=== PATIENT | female | born 1940 | race Caucasian/White ===

== ENCOUNTER 2023-06-06 21:29 | Inpatient (IN) | payer MEDICARE, OTHER ==
[~2023-06-06] VITALS: Ht 160 cm; Wt 59.3 kg
[2023-06-06 22:03] LABS: BASOPHILS 0.9 % (0-2); EOSINOPHILS 6.3 % (0-6); HEMATOCRIT 38.7 % (35.0-50.0); HEMOGLOBIN 12.7 g/dL (12.0-18.0); LYMPHOCYTES 22.7 % (24-44); MCH 30.9 (27-36); MCHC 32.8 g/dl (30-36); MCV 94.3 fl (81-99); NEUTROPHILS 61.1 % (39-80); PLATELET COUNT 232 K/uL (140-440); RBC 4.11 M/ul (4.3-5.7); RDW 14.1 (10.5-15.0)
[2023-06-06 22:16] LABS: INR 1.01 (0.80-1.30); PROTIME 12.9 Sec (11.2-14.2)
[2023-06-06 22:17] LABS: ALBUMIN 3.4 g/dL (3.4-5.0); ALBUMIN/GLOBULIN RATIO 0.87 (1.1-2.4); ANION GAP 14.6 (7-21); BILIRUBIN, TOTAL 0.3 ng/dL (0.2-1.0); BUN/CREATININE RATIO 27.02 (6.0-28.6); CALCIUM 9.2 mg/dL (8.5-10.1); CREATININE, SERUM 0.74 mg/dL (0.55-1.02); POTASSIUM 3.6 mmol/L (3.5-5.1); PROTEIN, TOTAL 7.3 g/dL (6.4-8.2)
[2023-06-06 23:04] LABS: INFLUENZA B NAA NEGATIVE (NEGATIVE); RESPIRATORY SYNCYTIAL VIR NAA NEGATIVE (NEGATIVE)
[2023-06-07] VITALS (9 sets, daily range): BP systolic 103–149; BP diastolic 57–76
[2023-06-07] MEDS ORDERED: ASPIRIN81 MG PO (03:05)
[2023-06-07] MEDS ORDERED: VENTOLIN HFA18 GM (03:05)
[2023-06-07] MEDS ORDERED: LIPITOR40 MG PO (03:05)
[2023-06-07] MEDS ORDERED: BENADRYL25 MG PO (03:06)
[2023-06-07] MEDS ORDERED: CALCIUM-MAGNES1 EAC4 PO (03:06)
[2023-06-07] MEDS ORDERED: DICLOFENAC SOD100 MG PO (03:07)
[2023-06-07] MEDS ORDERED: CLOBETASOL 0.0560 GM TP (03:07)
[2023-06-07] MEDS ORDERED: GLUCOSAMINE-CH1 EA32 PO (03:08)
[2023-06-07] MEDS ORDERED: HAIR, SKIN & N1 EACH PO (03:09)
[2023-06-07] MEDS ORDERED: NIFEDIPINE ER90 MG PO (03:09)
[2023-06-07] MEDS ORDERED: TACROLIMUS30 G1 TP (03:10)
[2023-06-07] MEDS ORDERED: OXYGEN XX (03:10)
[2023-06-07] MEDS ORDERED: K-TAB ER20 MEQ PO (03:10)
[2023-06-07] MEDS ORDERED: ZYRTEC10 MG PO (03:11)
--- NOTE | 2023-06-07 03:25 | NUR ---
PATIENT ARRIVED TO THE FLOOR, AND REPORT WAS RECEIVED BY LINE PERSON. TRANSFERRED PATIENT FROM [facility] TO HOSPITAL BED W 4 PERSON ASSIST. PRN PAIN MEDICAITON GIVEN, SEE EMAR. PUREWICK IN PLACE. IV FLUIDS INFUSING PER ORDER. ADMISSION ASSEMESNT COMPLETED. PATIENT HAD ACTIVE BOWEL TONES. STRONG PEDAL PULSES PRESENT. HEART AND RESPIRATORY WNL. CMS INTACT. LEFT LEG SHORTENED AND TURN OUTWARD. PATIENTS DAUGHTER, АЛЕКСАНДР, IS AT BEDSIDE STAYING OVER NIGHT. NO FURHTER NEEDS AT THIS TIME. PATIENT ORIENTED TO ROOM. PATIENT EDCATED ON HOW TO USE CALL LIGHT.
--- NOTE | 2023-06-07 04:17 | NUR ---
ROUNDING ON PATIENT. PATIENT RESTING IN BED WITH EYES CLOSED. RESIRATINS EVEN AND UNLABORED. 02 95% ON 2L NC. CALL LIGHT IS WITHIN REACH.
--- NOTE | 2023-06-07 05:24 | NUR ---
ROUNDING ON PATIENT. VSS. NEW BAG IV FLUID INFUSING, WNL. PATIENT CONTINUES TO REPORT ABD PAIN. FRESH WATER PROVIDED. NO FURTHER NEEDS.
[2023-06-07] MEDS ORDERED: DOCUSATE SODIU100 M1 PO (06:29)
--- NOTE | 2023-06-07 06:47 | NUR ---
PATIENT VITAL SIGNS OBTAINED. PATIENT IN 5/10 PAIN IN THE LEFT LEG. PRN PAIN MEDICATION GIVEN, SEE MAR PATIENT UNABLE TO VOID. PATIENT HAD A BLADDER SCAN, 700 + mL OF URINE IN THE BLADDER. WALDEN CATHETER PLACED.
--- NOTE | 2023-06-07 06:58 | NUR ---
TELEPHONE ORDER RECEIVED FOR HOSPITALIST CONSULT VERIFIED WITH READBACK METHOD. DR. JACKSON IN CCU. MESSAGE LEFT WITH CCU RN REGARDING CONSULT REQUEST.
--- NOTE | 2023-06-07 07:35 | NUR ---
VERBAL BEDSIDE REPORT RECEIVED FROM TOO ROGEL AND TOO SHANE. PT IS AWAKE AND ALERT, IN BED, SUPINE, VISITORS AT BEDSIDE. DAUGHTER IN ROOM ASSIST PT WITH ORAL CARE.
--- NOTE | 2023-06-07 07:51 | NUR ---
PT/DAUGHTER UPDATED REGARDING SURGICAL TIME. DAUGHTER REMOVING PT WATCH, EARRINGS, NECKLACE, AND RINGS AND PLACING IN SPECIMEN CUP PROVIDED. DAUGHTER TO KEEP JEWELRY UNTIL PT RETURN FROM SURGERY. ORAL CARE SUPPLIES AND CHAPSTICK PROVIDED FOR PT.
--- NOTE | 2023-06-07 08:03 | NUR ---
DR. EDWARD INTO SPEAK WITH PT.
--- NOTE | 2023-06-07 08:20 | NUR ---
Update from Dr. Lai. Pt will have surgery today. At this time, family plan on taking pt home as their home is handicap accessable.
--- NOTE | 2023-06-07 08:34 | NUR ---
WALDEN CATHETER EMPTIED, CLEAR YELLOW URINE NOTED. CHLORHEXADINE BATH PROVIDED, NEW GOWN DONNED. EKG PERFORMED BY DI STAFF. DENTURES REMAIN IN PLACE, DENTURE CUP PROVIDED. JEWLERY REMOVED AND PLACED WITH DAUGHTER.
--- NOTE | 2023-06-07 10:58 | NUR ---
PT ARRIVES BACK TO MED-SURG S/P LEFT HIP REPAIR WITH DYNAMIC HIP SCREW. VERBAL BEDSIDE REPORT RECEIVED FROM TOO GLEASON.
--- NOTE | 2023-06-07 11:10 | NUR ---
PT ON 4L O2 VIA NC, SATS 94%, ON CONTINUOUS PULSE OXIMETER. TEDS AND KNEE HIGH SCDS IN PLACE. ICE OVER LEFT UPPER THIGH INCISION. DRESSING TO LEFT UPPER THIGH INCISION IS INTACT. SMALL AMOUNT OF RED STRIKE THROUGHT NOTED ON DRESSING. CMS INTACT TO BLE, PT REPORTS TINGLING IN BLE. DP PULSES STRONG BILATERALLY, VIOLIN TEACHER LESS THAN [address] DRAINING CLEAR YELLOW URINE. VSS. PT DENIES PAIN AT THIS TIME. "FEELS DIFFERENT, TINGLING." WARM BLANKET PROVIDED PER PT REQUEST. CALL LIGHT IN REACH VISITORS X2 AT BEDSIDE. NO REQUESTS AT THIS TIME.
--- NOTE | 2023-06-07 11:18 | NUR ---
06/07/23 1118 Jeannine Gomez 1007 PT ARRIVED IN PACU NON RESPONSIVE TO NOXIOUS STIMULI WITH OPA IN PLACE. 1010 BLOOD SUGAR 107. ICE TO L HIP. 1015 PT REACTIVE. OPA REMOVED. 1030 PT VISITING WITH STAFF. NO C/O'S. 1058 TO ROOM 112. BED PLUGGED IN AND REPORT GIVEN TO RN. FAMILY AT BEDSIDE.
--- NOTE | 2023-06-07 12:09 | NUR ---
VSS. PT DROWSY ON 4L O2 VIA NC SATS 95%, PT ON CONTINUOUS PULSE OXIMETER. DP PULSES STRONG BILATERALLY, ORTHOTIST PROSTHETIST LESS 3 SEC. CMS INTACT. PT REPORTS SOME TINGLING STILL IN THE BLE. DENIES PAIN AT THIS TIME. NO CHANGES TO DRAINAGE ON LEFT THIGH DRESSING, ICE REMAINS IN PLACE. COFFEE PROVIDED PER PT REQUEST.
--- NOTE | 2023-06-07 13:00 | NUR ---
PT RESTS WITH EYES CLOSED, RESP EVEN AND UNLABORED, ROUSES TO SOUND. ON 4LPM O2 VIA NC, CMS INTACT TO BLE. PT REPORTS BLE ARE "A LITTLE TINGLY." PT DENIES PAIN OR NAUSEA. TOLERATES SIPS OF COFFEE WELL. ANTONIO CHAPMAN PROVIDED PER PT REQUEST. NOTED A SMALL INCREASE IN SANGUINEOUS DRAINAGE ON THE LEFT THIGH DRESSING. ICE REMAINS IN PLACE. VSS. NO FURTHER REQUESTS AT THIS TIME.
--- NOTE | 2023-06-07 14:10 | NUR ---
VSS. PT SITS UP IN RECLINER, JUST FINISHED SESSION WITH PHYSICAL THERAPY. PT SATS 97% ON 4LMP O2, O2 TITRATED DOWN TO 2LPM. CMS TO BLE INTACT. NOTED MODERATED SANGUINESOUS STRIKE THROUGH ON LEFT THIGH DRESSING, ICE IN PLACE OVER INCISION. PT REPORTS INCISIONAL PAIN 3/10. DENIES NAUSEA, TOLERATES ANTONIO CRACKERS WELL. PT ASKS FOR MORE FOOD, SOUP ORDERED TO PT ROOM. VISITORS X4 IN PT ROOM.
--- NOTE | 2023-06-07 14:21 | NUR ---
NATALIE RECEIVED FOR LEFT INCISIONAL PAIN, SEE eMAR.
--- NOTE | 2023-06-07 16:50 | NUR ---
Spoke with Scarlett, her daughter Patricia, and her MIN Lj. Pt has been living in her motorhome and staying in [place]. She was getting ready to move to her daughter's in [place] for the winter when she fell. Pt has room with a walk in shower that was built for her. She will move from her motorhome into the daughter's house.Granddaughter and her family live next door. Family plans on driving pt to their home in her motorhome. Pt uses 02 chronic, and has her concentrator with her. We discussed needs for pt to get home and what she will need at home. House is one level and has walk in shower. Pt will need a walker. MIN would like pt to have wc, pt does not want this. Daughter requests Home Health. We looked up agencies on medicare compare and they would like [facility]. I will discuss the above with Dr. Lai in the morning and request and Rx for a walker and f2f for Home Health. They deny further needs. I will discuss with PT to check if they feel pt has other needs. Per pt she is toe touch wt bearing. She does not want a SNF on [place], but to go home with family. Hopefully we can make this happen.
--- NOTE | 2023-06-07 18:04 | NUR ---
PT SITS UP IN RECLINER, EATS DINNER. IS PROVIDED, REVIEWED HOW TO USE IS, PT VERBALIZES UNDERSTANDING, STATES SHE HAS USED ONE BEFORE. HEEL PROTECTORS IN ROOM ON BED FOR USE WHEN PT RETURNS TO BED.
--- NOTE | 2023-06-07 18:14 | NUR ---
PT S/P LEFT HIP ORIF WITH DYNAMIC HIP SCREW TODAY WITH . PT DENIES NAUSEA, TOLERATES PO INTAKE. PAIN CONTROLLED WITH NORCO PO. CMS INTACT TO BLE, DRAINAGE ON LEFT THIGH INCISION INCREASED FROM SMALL AMOUNT OF STRIKE THROUGH TO A MODERATE AMOUNT OF STRIKE THROUGH, DRESSING OTHERWISE INTACT. TEDS ON BLE, ICE OVER INCISION. CBG MANAGED WITH SLIDING SCALE INSULIN. PT UP WITH PHYSICAL THERAPY TODAY WHO REPORTS PT TO BE A HEAVY TO MODERATE 1-2 PERSON ASSIST WITH TRANSFERS, TTWB ONLY. IS AND HEEL PROTECTORS IN ROOM. PT EPRESSES FEAR OF EXPERIENCING PAIN LIKE THAT SHE FELT WHEN SHE FRACTURED HER HIP. WALDEN CATHETER REMAINS IN PLACE, DRAINS CLEAR YELLOW URINE. IV TO SL.
[2023-06-07 18:29] LABS: ANION GAP 14.3 (7-21); BUN/CREATININE RATIO 16.47 (6.0-28.6); CALCIUM 8.1 mg/dL (8.5-10.1); CREATININE, SERUM 0.85 mg/dL (0.55-1.02); POTASSIUM 3.3 mmol/L (3.5-5.1)
--- NOTE | 2023-06-07 18:36 | NUR ---
PATIENT SITTING UP IN CHAIR WORKING ON DINNER. VITALS AND I&O'S CHARTED. CALL LIGHT IN REACH. NO FURTHER NEEDS AT THIS TIME.
--- NOTE | 2023-06-07 19:25 | NUR ---
REPORT RECIEVED FROM TC GAGE. PATIENT TRANSFERED FROM THE CHAIR TO BED. 2PA TOE TOUCH WEIGHT BEARING ON LEFT LEG. CALL LIGHT WITH IN REACH. NO FURTHER NEEDS AT THIS TIME.
--- NOTE | 2023-06-07 20:30 | NUR ---
ASSESSMENT AND VITAL SIGNS DONE. DRESSING ON LEFT HIP INTACT, DRAINAGE NOTED. THIS RN OUTLINED THE DRAINAGE UNDER THE DRESSING AND WILL CONTINUE TO MONITOR. SCHEDULED MEDICATIONS GIVEN PER ORDER SEE MAR. PATIENT TRANSFERED FROM THE CHAIR TO THE BED. 2PA STAND PIVOT, NON WEIGHT BEARING ON LEFT LEG. SCDS, KARINA HOSE AND HEAL PROTECTORS ON. CALL LIGHT WITHIN REACH. NO FURTHER NEEDS AT THIS TIME.
--- NOTE | 2023-06-07 22:50 | NUR ---
PATIENT IN BED RESTING. PRN PAIN MEDICATIONS GIVEN. IV ABX GIVEN PER ORDER SEE OCT. WATER REFRESHED. CALL LIGHT WITH IN REACH. NO FURTHER NEEDS AT THIS TIME.
[2023-06-08 01:40] VITALS: BP 115/64
--- NOTE | 2023-06-08 01:47 | NUR ---
VITAL SIGNS DONE. PATIENT LAYING IN THE BED RESTING WITH EYES CLOSED. CALL LIGHT WITH IN REACH. NO FURTHER NEEDS AT THIS TIME.
--- NOTE | 2023-06-08 02:47 | NUR ---
PATIENT'S URINE OUTPUT WAS LOW. BLADDER SCANNED AND NO URINE WAS IN THE BLADDER. PATIENT ENCOURAGED TO DRINK. CALL LIGHT WITH IN REACH. NO FURTHER NEEDS AT THIS TIME.
--- NOTE | 2023-06-08 03:53 | NUR ---
PATIENT RESTING IN THE BED. RESP OBSERVED. CALL LIGHT WITH IN REACH. NO NEEDS AT THIS TIME.
[2023-06-08 05:48] LABS: BASOPHILS 0.2 % (0-2); EOSINOPHILS 0.1 % (0-6); HEMATOCRIT 24.3 % (35.0-50.0); HEMOGLOBIN 8.2 g/dL (12.0-18.0); LYMPHOCYTES 8.5 % (24-44); MCH 31.3 (27-36); MCHC 33.7 g/dl (30-36); MCV 92.9 fl (81-99); NEUTROPHILS 83.2 % (39-80); PLATELET COUNT 183 K/uL (140-440); RBC 2.62 M/ul (4.3-5.7); RDW 13.9 (10.5-15.0)
[2023-06-08 06:03] LABS: ALBUMIN 2.5 g/dL (3.4-5.0); ALBUMIN/GLOBULIN RATIO 0.86 (1.1-2.4); ANION GAP 7.6 (7-21); BILIRUBIN, TOTAL 0.3 ng/dL (0.2-1.0); BUN/CREATININE RATIO 22.61 (6.0-28.6); CREATININE, SERUM 0.84 mg/dL (0.55-1.02); POTASSIUM 3.6 mmol/L (3.5-5.1); PROTEIN, TOTAL 5.4 g/dL (6.4-8.2)
[2023-06-08 06:12] VITALS: BP 116/54
--- NOTE | 2023-06-08 06:15 | NUR ---
VITAL SIGNS AND ASSESSMENT DONE. NEW ICE PACK PLACED ON LEFT HIP. ICE WATER REFRESHED. CALL LIGHT WITH IN REACH. DRESSING INTACT.
--- NOTE | 2023-06-08 07:00 | OR ---
[facility] [address] [place], [place] [address] Signed DATE OF OPERATION: 06/07/2023 SURGEON: May Lai MD PREOPERATIVE DIAGNOSIS: Left intertrochanteric hip fracture, displaced. POSTOPERATIVE DIAGNOSIS: Left intertrochanteric hip fracture, displaced. PROCEDURE PERFORMED: Open reduction and internal fixation of left hip. LAW OFFICE MANAGER: None. ANESTHESIA: Spinal. BLOOD LOSS: 165 mL. IMPLANTS: Four hole Synthes DHS 85 mm lag screw and four distal screws. BRIEF HISTORY: Scarlett is an 83-year-old female with pain in her hip [place]. She was admitted to my service after radiographs showed a displaced intertrochanteric hip fracture. She was seen by the hospitalist and cleared for surgery this morning. Risks and benefits of operative treatment were discussed with her and she elected to proceed. DESCRIPTION OF PROCEDURE: Once consent was obtained, she was taken to the operating room. After adequate anesthesia, she was placed in traction post and the left leg was placed in traction. Traction was applied and Leadbetter maneuver was performed. The fracture was reduced with some difficulty. The nonoperative leg was placed in a traction boot and was adducted and extended. The C-arm was brought in and reasonably good reduction was obtained. The hip was then prepped and draped in a standard sterile fashion. The hip was approached through a 5 inch incision laterally. This was carried through skin and Electronically Signed By: MAY LAI MD 06/08/23 0700 PATIENT NAME: SCARLETT COWART OPERATIVE REPORT DATE OF : 40 REPORT #: [id number] PHYSICIAN: MAY LAI MD PCP: LEONARDO TOLEDO MD REPORT IS CONFIDENTIAL AND NOT TO BE RELEASED WITHOUT AUTHORIZATION [facility] [address] [place], [place] [address] Signed subcutaneous tissue and down to the IT band. This was divided longitudinally and through the vastus lateralis in a blunt fashion down to the lateral femur. Once this was accomplished, the fracture was reduced with a large clamp and the guide pin for the DHS set was then placed from the lateral femur across the femoral neck into a low center-center position on the femoral head. Once this was accomplished, the guide pin was over-reamed using the triple reamer after measuring to an 85 lag screw. The screw was then placed over the guide pin and advanced until it was well-seated in the femoral head with good bone purchase. The plate was then placed over the screw and advanced until it was flushed with the lateral femur. Once this was accomplished, the distal screw hole was drilled and appropriate length screw was placed. Final three holes were drilled and the final three screws were placed. Radiograph showed good reduction, good placement of the screws and alignment of the plate. The wound was then copiously irrigated with normal saline. The fascia was closed using #2 Stratafix, the subcutaneous tissue with 0 Stratafix and the skin with keyshawn. Wound was dressed with Acticoat-7 dressing only and she was awakened and taken to the recovery room in satisfactory condition. All sponge, needle, and instrument counts were correct. It should be noted at the end of the procedure that her left lower extremity was about 2 cm shorter than the right. Again, there is near anatomic reduction, so I believe this comes from her knee arthritis and knee flexion contracture. May Lai MD BA/MODL /[id number] Copies: ~ Electronically Signed By: MAY LAI MD 06/08/23 0700 PATIENT NAME: SCARLETT COWART OPERATIVE REPORT DATE OF : 40 REPORT #: [id number] PHYSICIAN: MAY LAI MD PCP: LEONARDO TOLEDO MD REPORT IS CONFIDENTIAL AND NOT TO BE RELEASED WITHOUT AUTHORIZATION
--- NOTE | 2023-06-08 07:00 | NUR ---
DR. EDWARD UPDATED ON LOW URINE OUTPUT AND DRAINAGE FROM INCISION. NO NEW ORDERS AT THIS TIME.
--- NOTE | 2023-06-08 07:22 | NUR ---
VERBAL REPORT RECEIVED FROM TOO RUIZ AND TOO WAGNER. PT RESTS IN BED WITH EYES CLOSES, RESP EVEN AND UNLABORED. O2 SATS 94% ON 2LPM VIA NC.
--- NOTE | 2023-06-08 08:19 | NUR ---
Pt sitting upright in bed with eyes closed & resting, awoke to verbal arousal. Blood glucose 131, primary nurse notified. Encouraged pt to drink fluids, patient agreeable. new icepack applied to left hip, dressing CLI. Bed railings up, call light and fluid within reach. patient stated she was comfortable and had no questions or concerns.
--- NOTE | 2023-06-08 09:02 | NUR ---
UPON ASSESSMENT OF THE IV IN THE RAC LEAKING NOTED, IV D/C. PT ON 2LPM O2 VIA NC SATS 93%. IS AT BEDSIDE. HEEL PROTECTORS IN PLACE TO BLE. CMS TO BLE INTACT. ICE IN PLACE OVER LEFT THIGH INCISION. NOTED ABD TAPED IN PLACE IS C/D/I, NO DRAINAGE THROUGH REINFORCED DRESSING.
--- NOTE | 2023-06-08 09:10 | NUR ---
Spoke with [facility]. They do not accept Medicare. They suggested [facility]. I called and spoke with Judy. She requests I send the chart and gave me the fax [phone]. I will send the chart when PT works with pt today.
--- NOTE | 2023-06-08 10:40 | NUR ---
Update given to Scarlett and daughter. Damon will be delivered today.
[2023-06-08 10:47] VITALS: BP 116/54
--- NOTE | 2023-06-08 11:00 | NUR ---
IV ESTABLISHED, 20G IN LFA, PT TOLERATED WELL. LR INFUSION STARTED ORDERED.
--- NOTE | 2023-06-08 11:05 | NUR ---
PT LAYING UPRIGHT IN BED, DAUGHTER AT BEDSIDE. PATIENT ASSESSMENT COMPLETED AND DOCUMENTED. PATIENT STATES SHES COMFORTABLE WITH NO QUESTIONS OR CONCERNS. NEW ICE PACK PLACED ON LEFT HIP AND PILLOWS ADJUSTED. VITALS AND I&O DONE AND DOCUMENTED.
--- NOTE | 2023-06-08 12:37 | EKG ---
[facility] [address] [facility] [place], [place] [address] Signed Sinus bradycardia Low voltage QRS ST \T\ T wave abnormality, consider lateral ischemia Abnormal ECG No previous ECGs available Confirmed by ARIANE JACKSON MD ([id number]) on 06/08/2023 12:37:14 PM Electronically Signed By: ARIANE JACKSON 06/08/23 1237 PATIENT NAME: HEIDI COWART Electrocardiogram DATE OF : 40 PHYSICIAN: ARIANE JACKSON REPORT #: [id number] REPORT IS CONFIDENTIAL AND NOT TO BE RELEASED WITHOUT AUTHORIZATION
--- NOTE | 2023-06-08 13:41 | NUR ---
PHYSICAL THERPAY IN ROOM WORKING WITH PT. PT UP IN RECLINER.
--- NOTE | 2023-06-08 13:59 | NUR ---
DAUGHTER IN ROOM. PT AND DAUGHTER BOTH IN GOOD SPIRITS. CONSENTED TO PRAYER. PRAYED FOR ONGOING HEALING AND ABIDING PEACE.
[2023-06-08 14:32] VITALS: BP 120/48
--- NOTE | 2023-06-08 14:40 | NUR ---
PT SITTING IN CHAIR WITH DAUGHTER AT SIDE. VITALS AND I&Os DONE. LINENS CHANGED AND ICE WATER REPLACED. PT STATED SHE WAS COMFORTABLE IN CHAIR, NO FURTHER QUESTIONS OR CONCERN. CALL LIGHT WITHIN REACH.
--- NOTE | 2023-06-08 15:00 | NUR ---
Face sheet, referral, f2f, H&P, Progress notes, PT/OT notes faxed to [facility] in [place], [place].
--- NOTE | 2023-06-08 15:54 | NUR ---
ONE TAB NORCO 7.5/325MG PO ADMIN FOR 5/10 LEFT HIP PAIN.
--- NOTE | 2023-06-08 16:01 | NUR ---
FRESH ICE PACK APPLIED TO LEFT THIGH INCISION, LEFT THIGH SWELLING NOTED. DRESSING OVER LEFT THIGH INCISION C/D/I. KARINA HOSE IN PLACE BLE, PT UP IN RECLINER. 2L O2 ON VIA NC. IV INFUSING LR, IV C/D/I, NO REDNESS, SWELLING OR LEAKING NOTED. PT RECEIVES NORCO FOR INCISIONAL PAIN. DAUGHTER IN ROOM VISITING.
--- NOTE | 2023-06-08 16:08 | NUR ---
WALDEN CATHETER IN PLACE DRAINS CLEAR CONCENTRATED YELLOW URINE. PO INTAKE ENCOURAGED.
--- NOTE | 2023-06-08 17:03 | NUR ---
PT SATS 85% ON 2 1/2 LMP VIA NC. PT IS AWAKE AND ALERT. IS ENCOURAGED, O2 SATS REMAIN BELOW 90%. O2 INCREASED TO 4LPM VIA NC, O2 SATS UP TO 89-91%. LUNGS CLEAR.
[2023-06-08 18:56] VITALS: BP 135/78
--- NOTE | 2023-06-08 19:45 | NUR ---
REPORT RECEIVED FROM DAY SHIFT RN. PT ASSISTED FROM RECLINER CHAIR TO BED. TOLERATED WELL. IV FLUIDS INFUSING. KARINA HOSE AND SCD'S IN PLACE. ICE PACKS APPLIED TO LEFT HIP FOR COMFORT. DRESSING CLEAN, DRY, AND INTACT. WALDEN DRAINING CLEAR YELLOW URINE. CALL LIGHT WITHIN REACH. SAFETY PRECAUTIONS IN PLACE. O2 IN PLACE. WILL CONTINUE TO MONITOR.
[2023-06-08 20:12] VITALS: BP 130/55
--- NOTE | 2023-06-08 20:23 | NUR ---
THIS PLATEMAKER ASSISTED RN TO GET PATIENT FROM BED SIDE CHAIR BACK INTO BED. THIS WAS SUCCESSFUL. PATIENT BACK IN BED COMFORTABLY. VITALS AND I/OS CHARTED. CALL LIGHT LEFT WITHIN REACH. NO OTHER IMMEDIATE NEEDS AT THIS TIME.
--- NOTE | 2023-06-09 01:40 | NUR ---
PT RESTING COMFORTABLY IN BED. BREATHING EVEN AND UNLABORED. SCD'S AND KARINA HOSE IN PLACE. HEEL BOOTS IN PLACE. ICE PACKS FILLED AND REPLACED. DRESSING CLEAN, DRY, AND INTACT. NO NEW DRAINAGE NOTICED. NO SIGNS OF ACUTE DISTRESS. [address] CALL LIGHT WITHIN REACH. WILL CONTINUE TO MONITOR. SAFETY PRECAUTIONS IN PLACE.
--- NOTE | 2023-06-09 05:45 | NUR ---
UPON ASSESSMENT, PT STATES SHE IS SHORT OF BREATH. VS TAKEN AND PT SATTING IN MID TO UPPER 80'S. OTHER VS WNL. FINE CRACKLES ASSESSED IN LOWER LOBES. RESPIRATORY CALLED AND ALSO ASSESSED PT. DR. NGUYEN CALLED AND NOTIFIED OF SOB AND VS. ORDERS FOR Q4 NEBULIZERS, CPT, AND TO D/C OF FLUIDS. WILL CONTINUE TO MONITOR.
[2023-06-09 05:54] VITALS: BP 126/56
--- NOTE | 2023-06-09 07:10 | NUR ---
REPORT RECEIVED FROM TOO RUIZ. PT LAYING IN BED WITH EYES CLOSED. RR EVEN AND UNLABORED. DR. JACKSON ENTERS ROOM. PT RESPONDS WHEN ADDRESSED. PT REQUESTING WARM BLANKET, WATER AND COFFEE. SN UCHE PROVIDED PT WITH WARM BLANKET, WATER AND COFFEE. PT DENIES ANY OTHER NEEDS AT THIS TIME. CALL LIGHT IN REACH.
--- NOTE | 2023-06-09 07:41 | NUR ---
REPORT GIVEN TO DAY SHIFT RN. PT LAYING IN BED RESTING COMFORTABLY. BREATHING EVEN AND UNLABORED. O2 IN PLACE. KARINA HOSE, SCD'S AND HEEL PROTECTORS IN PLACE. DRESSING CLEAN DRY AND INTACT. NO SIGNS OF ACUTE DISTRESS. CALL LIGHT WITHIN REACH. SAFETY PRECAUTIONS IN PLACE.
--- NOTE | 2023-06-09 09:15 | NUR ---
Spoke with Scarlett. She states she will be here until Monday. I texted Dr. Lai and he confirmed. Let pt know I spoke with [facility] and let them know pt will be discharging to home on Monday.
--- NOTE | 2023-06-09 09:18 | NUR ---
IN WITH SN UCHE TO ADMINISTER MEDICATIONS, SEE MAR. PT TAKES PO MEDICATIONS WITH NO ISSUES. ASSESSMENT COMPLETE. LUNG SOUNDS CLEAR IN RUL AND MICHAEL. CRACKLES IN AND RHONCHI IN RLL AND LLL. BOWEL TONES ACTIVE. PT REPORTS "A LITTLE TENDERNESS" WITH ABD PALPATION. LLE DRESSING C/D/I. EDEMA NOTED TO LEFT THIGH AND KNEE. PT REPORTS PAIN 4/10. PT REPORTS PAIN IS TOLERABLE AT THIS TIME. RT IN ROOM TO ADMINISTER BREATHING TX. PT DENIES ANY OTHER NEEDS AT THIS TIME. CALL LIGHT IN REACH.
[2023-06-09 09:50] VITALS: BP 122/60
--- NOTE | 2023-06-09 11:27 | NUR ---
IN TO ROUND ON PT. PT UP WITH PHYSICAL THERAPY. PT DENIES ANY NEEDS FROM THIS RN AT THIS TIME.
--- NOTE | 2023-06-09 12:00 | NUR ---
STUDENT NURSE GAVE PT COMPLETE BEDBATH, NEW GOWN AND SOCKS. TRANSFERRED FROM BED TO CHAIR WITH PHYSICAL THERAPY. LINENS CHANGED. PT SITTING IN CHAIR WITH DAUGHTER AT SIDE.
--- NOTE | 2023-06-09 12:29 | NUR ---
IN TO ROUND ON PT. PT UP IN RECLINER. PT REQUESTING SALT FOR LUNCH. SALT PROVIDED. PT DENIES ANY OTHER NEEDS AT THIS TIME. CALL LIGHT IN REACH. FAMILY IN ROOM. RT IN ROOM.
[2023-06-09 13:03] VITALS: BP 127/65
--- NOTE | 2023-06-09 13:30 | NUR ---
IN WITH PANTERA GAGNON. PT REQUESTING TO GO BACK TO BED. 2PA WITH FWW FROM RECLINER TO BED. PT REPORTING PAIN 5/10. PRN PAIN MEDICATION ADMINISTERED, SEE MAR. PT TAKES PO MEDICAITON WITH NO ISSUES. WATER PROVIDED. ICE PACKS PROVIDED. PT DENEIS ANY OTHER NEEDS AT THIS TIME. CALL LIGHT IN REACH. FAMILY IN ROOM.
--- NOTE | 2023-06-09 15:04 | NUR ---
NURSE HELP ME PUT PATIENT BACK TO BED AROUND ONE FIFTEEN. PATIENT USED HER WALKER.
--- NOTE | 2023-06-09 15:23 | NUR ---
IN TO ROUND ON PT. PT RESTING IN BED WITH EYES CLOSED. RR EVEN AND UNLABORED. PT AWAKENS AND ADDRESSES THIS RN. ASSESSMENT COMPLETE. PT REPORTING PAIN 3/10 IN LEFT HIP. ICE PACK IN PLACE. LUNG SOUNDS CLEAR IN RUL. EXPIRATORY WHEEZE IN MICHAEL, RLL AND LLL. CRACKLES IN RLL AND LLL. DRESSING TO LEFT HIP C/D/I. PEDAL PULSES PALPABLE. EDEMA NOTED TO LEFT THIGH AND LEFT KNEE. PT DENIES ANY OTHER NEEDS AT THIS TIME. CALL LIGHT IN REACH. PT ENCOUGAGED TO USE TRUMPET.
--- NOTE | 2023-06-09 17:58 | NUR ---
IN TO ROUND ON PT. PT LAYING IN BED AND REPSONDS WHEN ADDRESSED. PT DENIES ANY NEEDS AT THIS TIME. CALL LIGHT IN REACH.
[2023-06-09 18:13] VITALS: BP 123/65
--- NOTE | 2023-06-09 19:25 | NUR ---
BEDSIDE REPORT RECEIVED FROM ROD RN, PT AWAKE AND ALERT, DENIES NEED FOR PAIN MED AT THIS TIME, TALKATIVE AND PLEASANT, SIDE RAILS UP X 4, PT WATCHING TV, NURSE CALL LIGHT IN REACH.
--- NOTE | 2023-06-09 20:10 | NUR ---
RT IN FOR RESP TREATMENT, PT REQUESTING PAIN MED FOR LEFT HIP DISCOMFORT WHEN SHE IS DONE WITH NEB TREATMENT.
[2023-06-09 20:32] VITALS: BP 132/63
--- NOTE | 2023-06-09 20:35 | NUR ---
RN TO BEDSIDE, PT ALERT AND ORIENTENED, VS COMPLATED AND STABLE, ACCUCHECK 183, DISCUSSED NEED TO GIVE SS INSULIN, PT STATES SHE NEVER TAKES INSULIN AT HOME, DISCUSSED SOMETIMES WITH ADDED STRESS (FX, SURGERY, ETC) BLOOD SUGARS MAY BECOME ELEVATED, PT STATES SHE DID HAVE PART OF CORN BREAD MUFFIN EARILIER, PT DECLINES INSULIN AT THIS TIME UNTIL RN CAN TELL HER ALL HER BLOOD SUGARS TODAY, PLAN TO DISCUSS THIS WITH PATIENT. PT RESTING, WATCHING TV.
--- NOTE | 2023-06-09 22:50 | NUR ---
RN TO ROOM, PT AWAKE AND ALERT, STATES PAIN PILL WAS EFFECTIVE FOR HIP DISCOMFORT, ASSESSMENT COMPLETED, PT REPOSITIONED UP IN BED, CATH CARE DONE AND WALDEN DRAINING YELLOW URINE, ACCUCHECKS FROM TODAY DISCUSSED WITH PT, PT AGREES TO HAVING ACCUCHECK REDONE, CURRENTLY 154, PT AGREES TO SS INSULIN, 1 UNIT SQ GIVEN PER ORDER, FRESH ICE BAGS TO LEFT HIP AND TO LEFT KNEE, DRESSING DRY AND INTACT, FRESH WATER GIVEN AND BED LOW POSITION. SCDS, HEEL PROTECTORS AND KARINA HOSE IN PLACE.
--- NOTE | 2023-06-09 23:30 | NUR ---
PT WITHOUT FURTHER REQUESTS, ATTEMPTING TO REST, OXYGEN REMAINS ON AT 2.5L/NC, HOB ELEVATED APPROX 25-30%.
--- NOTE | 2023-06-10 00:30 | NUR ---
PT ASLEEP, RESP REG, WITHOUT DISTRESS.
--- NOTE | 2023-06-10 02:25 | NUR ---
PT REMAINS ASLEEP, RESP EVEN AND REG, RESP RATE 20.
--- NOTE | 2023-06-10 03:57 | NUR ---
PT APPEARS TO BE SLEEPING, RESP EVEN AND REG.
[2023-06-10 05:40] VITALS: BP 128/44
--- NOTE | 2023-06-10 05:40 | NUR ---
PT AWAKEN FOR VS, NOTED OXYGEN OFF, REPLACED AT 2.5L/NC, SATS 87% AND GRADUALLY GO UP TO 90-91% IN A FEW MINUTES, PT STATES SHE MAY WANT TO GET UP TO SIT ON TOILET AND SEE IF SHE CAN HAVE A BM, ENCOURAGED TO TAKE A PAIN PILL PRIOR TO GETTING UP, PT AGREES, MEDICATED WITH NORCO PER ORDER, FRESH ICE TO LEFT HIP, DRESSING REMAINS DRY, COFFEE GIVEN PER REQUEST. PT ATTEMPTING TO REST, BREATH SOUNDS CLEAR AND DIM IN THE BASES. PT RESTING
--- NOTE | 2023-06-10 07:15 | NUR ---
REPORT RECEIVED FROM JOHN Mendoza RN. PT SITTING UP IN BED. PT RESPONDS WHEN ADDRESSED. PT DENIES ANY NEEDS AT THIS TIME. CALL LIGHT IN REACH.
--- NOTE | 2023-06-10 08:06 | NUR ---
IN TO ADMINISTER MEDICAITON, SEE MAR. PT TAKES PO MEDICAITON WITH NO ISSUES. ASSESSMENT COMPLETE. LUNG SOUNDS CLEAR. BOWEL TONES ACTIVE. PT REPORTING PAIN 3/10 TO LEFT THIGH. DRESSING TO LEFT THIGH C/D/I. EDEMA NOTED TO LEFT THIGH AND KNEE. PEDAL PULSES PALPABLE. ICE PACKS IN PLACE TO LEFT KNEE AND LEFT THIGH. PT DENIES ANY OTHER NEEDS AT THIS TIME. CALL LIGHT IN REACH. RT IN ROOM.
--- NOTE | 2023-06-10 09:07 | NUR ---
IN TO ROUND ON PT. PT UP IN RECLINER. TOO RASHEED IN ASSISTING PT WITH TRAY. PT DENIES ANY NEEDS FROM THIS RN AT THIS TIME.
[2023-06-10 09:44] VITALS: BP 132/70
--- NOTE | 2023-06-10 10:12 | NUR ---
IN TO ROUND ON PT. PT SITTING UP IN RECLINER VISITING WITH FAMILY. PT REPORTING PAIN 12/05. PRN PAIN MEDICATION ADMINISTERED, SEE MAR. PT TAKES PO MEDICATION WITH NO ISSUES. [facility] DC's AT 1020 PER ORDERS. FAMILY LEAVES ROOM FOR PT PRIVACY. PT TOLERATES WELL. PT DENIES ANY OTHER NEEDS AT THIS TIME. CALL LIGHT IN REACH. FAMILY BACK IN ROOM.
--- NOTE | 2023-06-10 11:27 | NUR ---
IN TO ROUND ON PT. PT UP IN RECLINER WITH EYES CLOSED, RR EVEN AND UNLABORED. CALL LIGHT IN REACH. NO NEEDS IDENTIFIED.
--- NOTE | 2023-06-10 12:08 | NUR ---
IN TO ROUND ON PT. PT UP IN RECLINER WITH BLE ELEVATED ON RECLINER. LLE ELEVATED WITH PILLOW. PT RESTING WITH EYES CLOSED, RR EVEN AND UNLABORED. NO NEEDS IDENTIFIED AT THIS TIME. CALL LIGHT IN REACH.
--- NOTE | 2023-06-10 13:15 | NUR ---
IN TO ROUND ON PT. PT UP IN RECLINER. FAMILY IN ROOM. OFFERED TOILETING. PT DENIES AT THIS TIME. EDUCATED PT THAT WE NEED TO ATTEMPT TO VOID SOON, OTHERWISE THIS RN WILL NEED TO BLADDER SCAN PT AND GO FROM THERE. PT VERBALIZES UNDERSTANDING AND STATES "I'LL WORK ON IT" WHILE HOLDING UP WATER CUP. PT DENIES ANY OTHER NEEDS AT THIS TIME. CALL LIGHT IN REACH.
[2023-06-10 14:05] VITALS: BP 125/54
--- NOTE | 2023-06-10 14:06 | NUR ---
IN WITH PANTERA GAGNON TO GET PT UP TO BSC. PT SITTING UP IN RECLINER. 2PA FROM RECLINER TO BSC WITH FWW. TOE TOUCH WEIGHT BEARING ON LEFT LOWER EXTREMITY. PT REQUESTING SOME TIME. CALL LIGHT IN REACH. VITALS COMPLETE. PT DENIES ANY OTHER NEEDS AT THIS TIME. CALL LIGHT IN REACH. PT VERBALIZES UNDERSTANDING TO CALL WHEN READY TO GO TO BED.
--- NOTE | 2023-06-10 14:40 | NUR ---
PT CALLS FOR ASSIST OFF COMMODE. PT VOIDS 100ML OF URINE. EDILBERTO CARE PROVIDED. PT ASSISTED TO BED WITH 2 PERSON ASSIST, PT TOLERATES THIS WELL. ICE WATER AND ICE PACKS TO LEFT THIGH INCISION AND LEFT KNEE PER PT REQUEST. CALL LIGHT AND BELONGINGS IN REACH, NO FURTHER REQUESTS AT THIS TIME.
--- NOTE | 2023-06-10 15:14 | NUR ---
IN TO ROUND ON PT. DR. JACKSON IN ROOM. PT REPORTING PAIN 12/05. PRN PAIN MEDICATION ADMINISTERED, SEE MAR. PT TAKES PO MEDICAITONS WITH NO ISSUES. ASSESSMENT COMPLETE. LUNG SOUNDS CLEAR. LEFT THIGH DRESSING C/D/I. EDEMA TO LEFT THIGH AND KNEE. LEFT THIGH NOT WARM TO TOUCH. PEDAL PULSES PALPABLE. PT IN BED WITH ICE PACK TO LEFT HIP. LEFT LEG ELEVATED ON PILLOW. PT DENIES ANY OTHER NEEDS AT THIS TIME. CALL LIGHT IN REACH.
--- NOTE | 2023-06-10 16:50 | NUR ---
IN TO ROUND ON PT. PANTERA BRENNER IN ROOM. PT RESTING IN BED WITH EYES CLOSED, RR EVEN AND UNLABORED. NO NEEDS IDENTIFIED AT THIS TIME. CALL LIGHT IN REACH. PANTERA GAGNON IN ROOM.
--- NOTE | 2023-06-10 17:14 | NUR ---
IN TO ADMINISTER MEDICATION, SEE MAR. PT REQUESTING TO BE REPOSITIONED IN BED. TOO MONTEZ IN TO ASSIST WITH BOOSTING PT. PT BOOSTED IN BED. TRAY PROVIDED FOR PTs DINNER. PT DENIES ANY OTHER NEEDS AT THIS TIME. CALL LIGHT IN REACH. MADE PLAN TO COME BACK FOR TOILETING.
[2023-06-10 18:04] VITALS: BP 123/60
--- NOTE | 2023-06-10 18:04 | NUR ---
IN TO OBTAIN VITALS. VITALS COMPLETE. TOO RASHEED IN TO ASSIST WITH GETTING PT FROM BED TO BSC WITH FWW. PT ON BSC. PANTERA GAGNON IN TO REMOVE DINNER TRAY. I&Os COMPLETE. PT REQUESTING PRIVACY. CALL LIGHT IN REACH OF PT. PT INSTRUCTED TO CALL WHEN READY TO GET OFF BSC AND BACK INTO BED. PT VERBALIZES UNDERSTANDING. PT DENIES ANY OTHER NEEDS AT THIS TIME.
--- NOTE | 2023-06-10 19:32 | NUR ---
BEDSIDE REPORT RECEIVED PER ROD RN, PT ALERT AND ORIENTENED, PT VISITING WITH FAMILY, FRESH WATER GIVEN.
[2023-06-10 20:15] VITALS: BP 138/57
--- NOTE | 2023-06-10 20:24 | NUR ---
INTO DO PATIENTS VITALS. RT IN WITH PATIENT AT THIS TIME. FAMILY AT BEDSIDE. PATIENT ON 4L NC AT THIS TIME. PATIENT VERY TALKATIVE. CALL LIGHT WITHIN REACH. DENIES ANY OTHER CARES AT THIS TIME.
--- NOTE | 2023-06-10 20:49 | NUR ---
PT AWAKE AND ALERT, FAMILY AT BEDSIDE, PT MEDICATED FOR PAIN CONTROL, PT REQUESTING 2 NORCO TABLETS, GIVEN PER ORDER, SS INSULIN 3U HUMOLOG GIVEN SQ PER ORDER, PT ALERT, TALKATIVE TO FAMILY, ASSESSMENT COMPLETED, PT REMAINS ON 4L/NC, PLAN TO GET UP TO VOID. ICE IN PLACE TO LEFT HIP AND LEFT KNEE. SIDE RAILS UP X2, BED LOW POSITION AND CALL LIGHT IN REACH.
--- NOTE | 2023-06-10 23:10 | NUR ---
PT ASSISTED UP TO BSC WITH 2PA WITH FFW, SUPPORT TO LEFT LEG GIVEN PER RN, PT WANTING TO DO MUCH SHE CAN TO KEEP UP HER STRENGTH, PT SAT UP ON COMMODE AND WANTS A FEW MINUTES TO SIT, FRESH BEVERAGES GIVEN.
--- NOTE | 2023-06-10 23:55 | NUR ---
PT BACK TO BED WITH 1PA, SLOW BUT STEADY, ATTEMPTING TO DO MUCH SHE CAN ON HER OWN, RN ASSISTING WITH LEFT LEG, PT VOIDED 150ML YELLOW URINE, WHEN BACK IN BED, FRESH ICE TO LEFT HIP AND LEFT KNEE, SIDE RAILS UP X 4 PER PT REQUEST, DRINKING PROTEIN DRINK, DENIES OTHER NEEDS AT THIS TIME.
--- NOTE | 2023-06-11 00:45 | NUR ---
PT APPEARS TO SLEEP, RESP EVEN AND REG, OXYGEN REMAINS IN PLACE, PT WITHOUT SIGNS OF DISTRESS.
--- NOTE | 2023-06-11 02:40 | NUR ---
PT ASLEEP, RESP EVEN AND REG, OXYGEN IN PLACE.
--- NOTE | 2023-06-11 03:05 | NUR ---
PT ASLEEP, RESP EVEN AND REG, OXYGEN IN PLACE.
--- NOTE | 2023-06-11 04:25 | NUR ---
PT RESTING, REPOSITIONING SELF, RESP REG WITHOUT DISTRESS.
[2023-06-11 05:50] VITALS: BP 135/87
--- NOTE | 2023-06-11 05:55 | NUR ---
PT AWAKEN, ALERT, VS STABLE, AFEBRILE, REQUESTING PAIN MED, MEDICATED WITH 2 NORCO PER ORDER, PT ASSISTED UP TO BSC, 1PA WITH FFW, AND LEFT TOE TOUCH ONLY, PT VOIDED AND PASSING GAS. RN AT BEDSIDE.
--- NOTE | 2023-06-11 06:25 | NUR ---
PT ASSISTED BACK TO BED, TRANSFERS SLOW BUT STEADY, ATTEMPTING TO DO MUCH SHE CAN BY HERSELF, SCD AND HEEL PROTECTORS REPLACED ON PT, BREATH SOUNDS CLEAR UPPER LOBES AND DIM IN BASES, SATS 95% ON 4L/NC, LEFT HIP DRESSING INTACT WITHOUT NOTED DRAINAGE, FRESH ICE TO LEFT HIP AND LEFT KNEE, PT RESTING QUIETLY WITHOUT FURTHER REQUESTS.
--- NOTE | 2023-06-11 07:10 | NUR ---
RECEIVED PT REPORT FROM TOO LOPEZ. PT IS SUPINE IN BED, LIGHTS OFF, SLEEPING. BREATHING IS REGULAR AND NON-LABORED, EQUAL CHEST RISE AND FALL. CALL LIGHT IS IN REACH.
[2023-06-11 08:50] VITALS: BP 138/66
--- NOTE | 2023-06-11 08:50 | NUR ---
IN FOR MED ADMINISTRATION PER EMAR. PT IS UP IN CHAIR, STATES SHE ALREADY HAD PT THIS MORNING. PT RATES HER PAIN 3.5 OUT OF 10 AND STATES THAT SHE IS COMFORTABLE AT THIS NUMBER. PT HAS ICE PACKS TO HER LEFT KNEE AND LEFT HIP AT THIS TIME. BREAKFAST TRAY IN ROOM, PT SET UP AT HER PREFERENCES. DENIES FURTHER NEEDS AT THIS TIME. PT O2 SATURATIONS ARE AT 93% ON 4L HUMIDIFIED O2.
--- NOTE | 2023-06-11 09:10 | NUR ---
DR. EDWARD IN TO SEE PT. PT UP IN CHAIR
[2023-06-11 11:28] VITALS: BP 133/68
--- NOTE | 2023-06-11 13:00 | NUR ---
IN FOR PAIN MED ADMINISTRATION. PT RATES PAIN 4 OUT OF 10. SHE IS SITTING UP IN THE CHAIR, LEGS ELEVATED, EATING LUNCH, FAMILY AT BEDSIDE. CALL LIGHT IN REACH. DENIES NEEDS AT THIS TIME.
[2023-06-11 13:05] VITALS: BP 115/77
--- NOTE | 2023-06-11 14:19 | NUR ---
PT CALL LIGHT ON. PT REQUESTS ASSISTANCE UP TO COMODE AND BACK TO BED. 1 PERSON ASSIST WITH FWW UP TO COMODE. PT VOIDS WITHOUT ISSUE. EDILBERTO CARE PER PT. 1 PERSON ASSIST WITH FWW BACK TO BED. FRESH ICE PACKS PROVIDED. PT TALKING WITH FAMILY ON PHONE. NO ADDITIONAL REQUESTS OR COMPLAINTS. CALL LIGHT WITHIN REACH.
--- NOTE | 2023-06-11 14:40 | NUR ---
PT SUPINE IN BED, EYES CLOSED, BREATHING REGULAR AND NON-LABORED, EQUAL CHEST RISE AND FALL. CALL LIGHT IN REACH.
--- NOTE | 2023-06-11 15:40 | NUR ---
IN WITH PT FOR POSITIONING. PT IS SUPINE IN BED AND STATES THAT SHE FEELS LIKE HER BOTTOM IS IN A HOLE. ASSISTED PT TO READJUST TO A POSITION OF COMFORT, PLACING PILLOWS UNDER HER LEFT HIP AND SHOULDER WELL A PILLOW UNDER HER RIGHT SHOULDER AND ARM. KARINA HOSE ON, SCD'S ON, HEEL PROTECTORS ON, VISITOR AT BEDSIDE. CALL LIGHT IN REACH. PERSONAL BELONGINGS IN REACH. DENIES FURTHER NEEDS AT THIS TIME.
[2023-06-11 18:00] VITALS: BP 137/71
--- NOTE | 2023-06-11 18:00 | NUR ---
IN WITH PT FOR VS AND I/O. PT IS SITTING UP IN BED, FAMILY IN ROOM. HER FAMILY BROUGHT HER DINNER FROM [employer] THAT SHE SEEMS TO LIKE MORE THAN THE DINNER SHE RECEIVED FROM THE HOSPITAL. PT DENIES ANY NEEDS AT THIS TIME. CALL LIGHT IN REACH.
--- NOTE | 2023-06-11 18:37 | NUR ---
Pt was up in the chair for the first part of day shift. After lunch, the pt used the BSC and requested to be back in bed, where she has been ever since. Pt has not eaten much of her meals while here, but her family brought her food from [employer]. She has not needed corrective insulin on day shift. Pt has had ice packs to her left hip and knee throughout the day, has not been using her IS, and was given pain meds x1 today but has not requested more and has not rated her pain at a level where she states she would want more. Pt seems to become more "loopy" sounding while on pain medication, but is still oriented x4. She has had family and friends visiting her throughout the entire shift and has not slept much. Pt has been using her PT training to raise and lower her surgical leg, and uses the walker appropriately. Pt has not had a BM this shift.
--- NOTE | 2023-06-11 19:16 | NUR ---
SHIFT REPORT RECEIVED FROM MELANIE GAGE.
--- NOTE | 2023-06-11 19:33 | NUR ---
PT REPORT GIVEN TO TOO LOPEZ.
--- NOTE | 2023-06-11 19:45 | NUR ---
PT AWAKE AND ALERT, ANXIOUS TO GET UP TO BSC, STATES SHE NEEDS TO VOID, ASSISTED UP WITH 1PA AND FFW, TOE TOUCH TO LEFT FOOT, TRANSFER DIFFICULT DUE TO DISCOMFORT, PT STATES SHE WANTS TO GO NOW AND THEN GET PAIN MED AFTER RETURNING TO BED, PT VOIDED 475ML RAVI URINE. RN AT BEDSIDE, PT TALKATIVE ABOUT FAMILY MEMBERS VISITING AND EVENTS OF TODAY.
--- NOTE | 2023-06-11 20:44 | NUR ---
PT BACK TO BED, PT MEDICATED WITH 1 NORCO TABLET FOR PAIN IN LEFT HIP, VS AND ASSESSMENT COMPLETED. RT MEDICATIONS GIVEN, ACCUCHECK 185, 3 UNITS SS INSULIN GIVEN PER ORDER, SCDS, KARINA HOSE AND HEEL PROTECTORS IN PLACE, FRESH ICE TO LEFT HIP AND LEFT KNEE, SIDE RAILS UP X 4, BED LOW POSITION AND CALL LIGHT IN REACH. PT ABLE TO BURP BUT NO PASSING OF GAS, RT MIRALAX AND SENNA GIVEN. PT WATCHING TV.
[2023-06-11 20:50] VITALS: BP 138/57
--- NOTE | 2023-06-11 22:30 | NUR ---
PT WITH HOB ELEVATED, EATING A BANANA, ENCOURAGED PT TO CALL FOR ASSISTANCE AT ANY TIME, CALL LIGHT INTACT.
--- NOTE | 2023-06-12 00:10 | NUR ---
RN CALLED TO ROOM TO ASSIST PT UP TO BSC, TRANSFER UP TO BSC, TRANSFER WITH IPA WITH FWW, TRANSFER WENT A LITTLE SMOOTHER THAN LAST TRANSFER, PT VOIDED, PT CONCERNED SHE HASN'T HAD A BM AND STATES SHE PROBALBY WON'T GO HOME UNTIL SHE HAS A BM, DISCUSSED WITH PT THAT SHE CAN DISCUSS THIS WITH MD TOMORROW. ORAL CARE GIVEN, DENTURES CLEANSED PER PT REQUEST.
--- NOTE | 2023-06-12 01:55 | NUR ---
PT APPEARS TO SLEEP, RESP EVEN AND REG, OXYGEN IN PLACE,.
--- NOTE | 2023-06-12 04:05 | NUR ---
PT CONTINUES TO SLEEP, RESP EVEN AND REG, WITHOUT DISTRESS.
[2023-06-12 05:12] VITALS: BP 109/75
--- NOTE | 2023-06-12 05:16 | NUR ---
PT ASSISTED UP TO BSC PER ERASTO PROGRESS CLERK, PT STATES TRANFER WENT BETTER THAN LAST NIGHT, PT ATTEMPTING TO HAVE BM, VS DONE AND STABLE, PT DESIRES TO HAVE A FEW MINUTES ALONE ON BSC, WARM PRUNE JUICE GIVEN PER PT REQUEST.
--- NOTE | 2023-06-12 05:20 | NUR ---
PT MEDICATED WITH 1 NORCO TAB FOR LEFT HIP PAIN, BREATH SOUNDS WITH FAINT EXP WHEEZING, SL INTACT, LEFT HIP DRESSING REINFORCED WITH TAPE. PT CONCERNED WITH NOT HAVING A BM.
--- NOTE | 2023-06-12 06:45 | NUR ---
PT ASLEEP, RESP EVEN AND REG, WITHOUT DISTRESS.
--- NOTE | 2023-06-12 07:12 | NUR ---
PT REPORT RECEIVED FROM TOO BUTLER. PT IS RESTING IN BED, SLEEPING. BREATHING REGULAR AND NON-LABORED.
--- NOTE | 2023-06-12 08:31 | NUR ---
IN WITH PT FOR SHIFT ASSESSMENT AND MED ADMINISTRATION. PT IS A&O X4, SUPINE IN BED WITH HOB ELEVATED FOR COMFORT. PT IS VERY TALKATIVE THIS MORNING AND STATES THAT SHE "WILL NOT BE GOING HOME UNTIL SHE HAS A BOWEL MOVEMENT". DISCUSSED PT'S REGULAR BM HX WITH PT AND ADVISED HER THAT SHE HAS ACTIVE BOWEL TONES IN ALL 4 QUADRANTS. SHE HAS BEEN PASSING GAS YESTERDAY BUT NOT TODAY SO FAR. PT IS ON THE PHONE CURRENTLY WITH HER FAMILY MEMBER. SHE STATES THAT THEY ARE ALL STAYING AT [facility] AND HER RV IS PARKED THERE AT THE RV PARK. THEY PLAN ON LEAVING FOR [place] THE MORNING SHE IS RELEASED OR THE NEXT MORNING IF SHE IS RELEASED IN THE AFTERNOON. PT IS VERY CONCERNED ABOUT HER BOWELS AND STATES SHE HAS GONE 35 DAYS BEFORE, IN THE PAST, WITHOUT HAVING A BM, AND THAT WAS "VERY SCARY". PT IS CURRENTLY ON 2.5LPM O2 VIA NC AND HER SATS ARE AT 96%.
--- NOTE | 2023-06-12 10:15 | NUR ---
Spoke with pt and her daughter. Pt stating she cannot leave as she has not had a BM in the last 6 days. She has had an obstruction in the past. She has been taking stool softners and prune juice with out a BM. Let her know I will speak with the carbon electrodes supervisor. Spoke with Eli Heller. I will text Dr. Lai. Updated to no bm and they would like to give Magcitrate or MOM. Pts RN aware. He replied and ordered. Progress note showed pt can dc when she has had a bm.
[2023-06-12 10:33] VITALS: BP 156/60
--- NOTE | 2023-06-12 11:32 | NUR ---
IN WITH PT FOR MED ADMINISTRATION PER EMAR. PT IN WITH PT WELL. PT'S DAUGHTER IN ROOM. PT IS STATING THAT SHE WILL "NOT GO HOME TODAY" BECAUSE SHE DOES NOT WANT TO DRIVE HER MOTOR HOME AT NIGHT. PT IS TRYING TO DRINK MAG CITRATE AT THIS TIME, PER EMAR. CALL LIGHT IN REACH.
--- NOTE | 2023-06-12 12:45 | NUR ---
PT IS UP IN CHAIR, 3 VISITORS IN ROOM. LUNCH TRAY IN ROOM. PT STATES THE KITCHEN IS BRINGING HER A SANDWICH INSTEAD OF THE FOOD THEY BROUGHT FOR LUNCH BECAUSE SHE DOESN'T LIKE WHAT IS FOR LUNCH. PT COUGHED AND GRIMACED AND STATED THAT HURT REALLY BAD IN HER HIP. PT WAS MEDICATED WITH ONE TAB 7.5MG NORCO AT THIS TIME. ICE WATER REFRESHED. CALL LIGHT IN REACH.
[2023-06-12 14:04] VITALS: BP 115/55
--- NOTE | 2023-06-12 14:19 | NUR ---
NURSING STAFF IN ROOM. DID NOT INTERRUPT. PRAYED FOR HEALING AND ABIDING PEACE.
--- NOTE | 2023-06-12 14:52 | NUR ---
Called [facility] and updated, pt did not dc today. Spoke with Judy, she states they will have a nurse available to admit this week. Let her know, I am hoping pt will dc by tomorrow.
--- NOTE | 2023-06-12 17:07 | NUR ---
2PA PT FROM CHAIR TO C IN BATHROOM. PT INITIALLY REFUSED TO USE THE RESISTANCE BAND THAT PT SHOWED HER HOW TO USE TO HELP HERSELF MOVE HER LEFT LEG, WHEN TRANSFERRING TO THE COMMODE, AND REQUESTED ONE OF US USE OUR FOOT TO ASSIST HER WITH HER LEFT FOOT. ON THE WAY TO THE BED FROM THE COMMODE, THE PT WAS ENCOURAGED TO USE THE RESISTANCE BAND, WHICH SHE DID BUT ONLY WITH ASSISTANCE (THIS RN HELD TENSION ON THE BAND AND THE PT MOVED HER LEFT LEG ON HER OWN). PT SAT AT THE EDGE OF THE BED FOR DINNER. FAMILY MEMBERS IN ROOM. NO OTHER NEEDS AT THIS TIME.
--- NOTE | 2023-06-12 18:27 | NUR ---
PT HAS BEEN UP IN THE CHAIR FOR MOST OF THIS SHIFT, WORKED WITH PHYSICAL THERAPY, AND HAS HAD VISITORS FOR MOST OF THE SHIFT. PT HAS HAD FOOD BROUGHT IN TO HER AND REQUIRED 1 UNIT OF INSULIN AT LUNCH, ONLY. PT HAS BEEN UP TO VOID IN THE BATHROOM TO [facility] [place] 1 PERSON SBA USING FWW. HER DAUGHTER HAS BEEN INCREASINGLY HELPFUL AND SHOWS INTEREST IN WORKING WITH DELIVERY PERSON TOMORROW WHEN THEY COME TO WORK WITH THE PT SO SHE CAN LEARN HOW TO HELP HER AT HOME. PT REQUIRED 1 TAB 7.5MG NORCO THIS AFTERNOON AFTER RECEIVING 1 TAB THIS MORNING AT ABOUT 0600 HOURS, AND HAS DONE WELL. ICE PACKS HAVE BEEN OFF AND ON HER SURGICAL SITE THROUGHOUT THE SHIFT WELL. REINFORCED DRESSING IS CDI.
--- NOTE | 2023-06-12 18:39 | NUR ---
PT PULLS CALL LIGHT IN BATHROOM. PT HAS 1 LARGE LOOSE BM. PT HELPED BACK TO BED. CALL LIGHT GIVEN
--- NOTE | 2023-06-12 18:45 | NUR ---
ADVISED BY TOO BUTLER THAT PT HAD A LARGE LIQUID BM THIS EVENING.
[2023-06-12 18:48] VITALS: BP 124/43
--- NOTE | 2023-06-12 19:20 | NUR ---
BEDSIDE REPORT RECEIVED FROM MELANIE GAGE, PT ALERT AND VISITING WITH FAMILY MEMBERS, REPORTS SHE HAD A BM TODAY WHICH SHE IS VERY HAPPY FOR. PT PLANNING TO BE [place] TOMORROW. PT WITHOUT REQUESTS AT THIS TIME.
--- NOTE | 2023-06-12 20:20 | NUR ---
PT AWAKE AND ALERT, FAMILY VISITING, VS DONE, PT REQUESTING PAIN MED, MEDICATED PER ORDER WITH NORCO 1 TABLET FOR PAIN 12/05, ACCUCHECK 164, 1 U SS INSULING GIVEN PER ORDER, ICE GIVEN TO LEFT HIP AND LEFT KNEE, PT DECLINES MIRALAX AND SENNA FOR TONIGHT DUE TO LARGE BM EARILIER TODAY, OXYGEN IN PLACE AT 2.5L/NC.
[2023-06-12 20:22] VITALS: BP 125/57
--- NOTE | 2023-06-12 22:20 | NUR ---
PT RESTING IN BED, LEGS REPOSITIONED, PT WANTS SIT UP AND EAT SANDWICH WHEN NURSE HAS TIME TO COME TO ROOM, PT STATES SHE WILL ATTEMPT TO VOID LATER AFTER SITTING UP A WHILE. PT TALKATIVE.
--- NOTE | 2023-06-13 00:41 | NUR ---
PATIENT UTILIZED THE CALL LIGHT. PATIENT WAS UP IN THE CHAIR FOR MORE THAN 2 HOURS PER PATIENT'S REQUEST. THIS TIME PATIENT DECIDED TO USE THE COMMODE AND THEN GO TO BED. 1 PA USING WALKER. PATIENT IS SLOW PIVOTING BUT TOLERATING WELL. SCD'S AND HEEL PROTECTORS ON. CALL LIGHT WITHIN REACH.
--- NOTE | 2023-06-13 00:45 | NUR ---
PT RESTING IN BED, STATES SHE WILL CALL IF SHE NEEDS ANOTHER PAIN PILL, FRESH ICE TO LEFT HIP AND LEFT KNEE, ASSESSMENT COMPLETED. OXYGEN REMAINS ON AT 2.5L/NC, PT RESTING IN BED, LOW POSITION, CALL LIGHT IN REACH, SIDE RAILS UP X4 PER PT REQUEST.
--- NOTE | 2023-06-13 02:20 | NUR ---
PT APPEARS TO SLEEP, EYES CLOSED AND RESP EVEN AND REG.
[2023-06-13 03:50] VITALS: BP 136/55
--- NOTE | 2023-06-13 03:50 | NUR ---
RN CALLED TO ROOM, ASSISTED UP TO BSC, VS DONE AND STABLE, PT MEDICATED WITH 1 NORCO FOR PAIN 4/10, BREATH SOUNDS FAINT EXP WHEEZES THOUGHOUT, LEFT HIP DRESSING INTACT, WITHOUT DRAINAGE, PT VOIDED 500ML AND HAD SMALL SOFT BROWN BM, PT ASSISTED BACK TO BED, KARINA HOSE, SCDS AND HEEL PROTECTORS REMAIN IN PLACE, ICE TO LEFT HIP AND LEFT KNEE. CALL LIGHT IN REACH.
--- NOTE | 2023-06-13 04:30 | NUR ---
PT APPEARS TO SLEEP, RESP EVEN AND REG, WITHOUT DISTRESS.
--- NOTE | 2023-06-13 06:05 | NUR ---
PT CONTINUES TO SLEEP, RESP EVEN AND REG, LEFT UNDISTURBED.
--- NOTE | 2023-06-13 07:34 | NUR ---
Report received from Mala GAGE. Patient resting in bed with eyes closed, even and unlabored respirations noted. No needs identified at this time. Call light in reach.
[2023-06-13] MEDS ORDERED: XARELTO10 MG PO (08:12)
[2023-06-13] MEDS ORDERED: GABAPENTIN100 MG PO (08:13)
[2023-06-13] MEDS ORDERED: HYDROCODON-ACE1 EA11 PO (08:13)
--- NOTE | 2023-06-13 08:21 | NUR ---
PATIENT UP TO BSC AND THEN TO CHAIR, SBA FWW. PATIENT MOVED VERY WELL ON HER OWN WITH NO ASSISTANCE ON MOVING THE LEFT LEG. LINENS CHANGED. CALL LIGHT IN REACH. NO FURTHER NEEDS AT THIS TIME.
--- NOTE | 2023-06-13 09:10 | NUR ---
Notified by RT, pts portable concentrator is a scam and does not provice 1L of 02. She will not be able to transport to home with this. Pt has a [employer] concentrator. In and spoke with pt as she had stated she also had her home concentrator with her. Pt states it is in the motorhome. It does not work when traveling, only when stationary and plugged in. I called [facility] to check if we can send two of their tanks to [place] with this pt. Per Juan in RT, pt will require two tanks to get home. Called and spoke with Lupe at [facility]. She checked and pt is on [employer] service. She does not have orders for tanks only a concentrator. She will need an 02 qualifier and new orders for medicare to cover her tanks. I texted Dr. Lai and he will sign orders. Verbal order for 02 qualifier and tanks when needed.
--- NOTE | 2023-06-13 09:15 | NUR ---
Scheduled medications administered with exception of miralax and senna which patient refuses at this time. Patient vitals taken, stable. Pt up to chair, states no further needs at this time.
--- NOTE | 2023-06-13 09:44 | NUR ---
FAMILY IN ROOM. ALL APPEARED TO BE IN GOOD SPIRITS. CONFIDENT THAT ALL IS SET FOR PT TO GO HOME WITH THEM. PT REQUESTED PRAYER. PRAYED FOR ONGOING HEALING AND GAVE THANKS FOR FAMILY.
--- NOTE | 2023-06-13 10:00 | NUR ---
Received 02 qualifier and nursing attendant took, qualifer, RX, and DC summary to office for signatures and note to be added stating need for 0xygen. All returned and faxed to [facility] at 11:38. Called and let [facility] know orders have been faxed. She will let me know when they have received auth.
--- NOTE | 2023-06-13 10:45 | NUR ---
Assisted patient to ambulate to BR. FWW with TTWB on L side. Patient has difficulty getting back to chair after voiding, chair brought closer to patient. Patient highly motivated however. Requires 2L of O2 with exertion, RT in room to perform O2 qualifier. Patient dressed in own clothes, IV removed WNL.
--- NOTE | 2023-06-13 12:30 | NUR ---
Family brought in outside meal for patient. Patient awaiting authorization for home 02.
--- NOTE | 2023-06-13 13:57 | NUR ---
SPOKE TO TOMMY GODINEZ REGARDING HIP DRESSING, SHE GIVES VERBAL ORDER TO CHANGE DRESSING PRIOR TO PATIENT DISCHARGE.
--- NOTE | 2023-06-13 14:00 | NUR ---
Called [facility] and asked if they have received auth. She states they have not,but does not feel it will be an issue. She ok for pt leave with their tanks. Called and spoke with jacqueline Denton, and let her know pt may dc.
[2023-06-13 14:11] VITALS: BP 133/56
--- NOTE | 2023-06-13 14:25 | NUR ---
SURGICAL DRESSING CHANGED. ELA INTACT, BRUISING AROUND INCISION, HOWEVER WELL APPROXIMATED AND NO REDNESS OR DRAINAGE NOTED. PATIENT DISCHARGE INSTRUCTIONS PROVIDED AND PERSONAL BELONGINGS RETURNED. IV REMOVED WNL. PATIENT ON ROOM AIR AT REST. 3 O2 TANKS SENT WITH PATIENT WITH TUBING. PRESCRIPTIONS SENT TO PHARMACY AND FAMILY RETRIEVED THEM. PT STABLE WITH NO FURTHER NEEDS. ASSISTED TO TRANSFER TO AND TO PERSONAL VEHICLE.
== END 2023-06-13 14:30 | disposition home or self-care (01) | DRG 482 ==
LOC: ED 21:29 → MS 06-07 00:33
PROVIDERS: Family Medicine; ADMIT Specialist; ATTEND Specialist
PROC: 0QS704Z Reposition Left Upper Femur with Internal Fixation Device, Open Approach (ICD-10-PCS; principal; 2023-06-07 09:00)
DX: S72.142A Displaced intertrochanteric fracture of left femur, initial encounter for closed fracture (principal); J44.9 Chronic obstructive pulmonary disease, unspecified; E11.9 Type 2 diabetes mellitus without complications; E87.6 Hypokalemia; E78.5 Hyperlipidemia, unspecified; Z20.822 Contact with and (suspected) exposure to COVID-19; D50.0 Iron deficiency anemia secondary to blood loss (chronic); I10 Essential (primary) hypertension; K59.00 Constipation, unspecified; W01.0XXA Fall on same level from slipping, tripping and stumbling without subsequent striking against object, initial encounter; Z98.890 Other specified postprocedural states; Z88.0 Allergy status to penicillin; Z88.8 Allergy status to other drugs, medicaments and biological substances; Z91.038 Other insect allergy status; Z79.899 Other long term (current) drug therapy; Z79.51 Long term (current) use of inhaled steroids; Z79.82 Long term (current) use of aspirin; Z87.01 Personal history of pneumonia (recurrent)
CPT/HCPCS: 01230; 36415; 51702; 73502; 73552; 80048; 80053; 85025; 85610; 87502; 93005; 93010; 94640; 94667; 94668; 94760; 94761; 94762; 97110; 97116; 97161; 97530; 99285-25; A9270; C1713; J0690; J0735; J1100; J1160; J1720; J1815; J1885; J2001; J2250; J2270; J2405; J2704; J2765; J3010; J7121; U0002